=== PATIENT | female | born 1980 ===

== ENCOUNTER 2024-12-28 13:44 | Outpatient (CLI) | payer OTHER, SELFPAY ==
--- NOTE | ~2024-12-28 | CT_ITS ---
EXAMINATION: CT diagnostic chest wo con DATE: 12/28/2024 14:10 INDICATION: Sternal pain TECHNIQUE: Computed tomography (CT) of the chest was performed without intravenous contrast. The dose -length product was 219.21 mGy-cm. Automated exposure control and iterative reconstruction technique were employed. COMPARISON: None FINDINGS: Heart size is normal. No significant pleural or pericardial effusion. No thoracic lymphaden opathy. Heart size normal. The upper abdomen is unremarkable. There are calcified granulomas of the s pleen. No endobronchial lesions to suggest malignancy. No focal airspace consolidation. No acute osse ous abnormality. No suspicious pulmonary nodules or masses. IMPRESSION: 1. No significant abnormality of the chest. No findings to explain patient's symptoms. Reviewed, dictated and finalized at location B. IMPRESSION: 1. No significant abnormality of the chest. No findings to explain patient's sy mptoms.
== END 2024-12-28 13:45 | disposition home or self-care (01) ==
PROVIDERS: PCP Nurse Practitioner; Visit Provider Nurse Practitioner
DX: R07.89 Other chest pain (principal)
CPT/HCPCS: 71250